=== PATIENT | male | born 1980 | race Caucasian/White ===

== ENCOUNTER 2022-07-14 10:25 | Emergency (ER) | payer MEDICAID, OTHER ==
[2022-07-14] MEDS ORDERED: cefTRIAXone 1 GM VIAL IVP STA (13:26)
[2022-07-14] MEDS ORDERED: SULFAMETH/TRIMETH DS 800/160 MG TABLET PO STA (13:26)
[2022-07-14 13:44] LABS: BASOPHILS % (AUTO) 0.4 %; EOSINOPHILS # (AUTO) 0.1 10^3/uL (0.0-0.7); EOSINOPHILS % (AUTO) 1.3 %; HCT - HEMATOCRIT 45.1 % (42.0-52.0); HGB - HEMOGLOBIN 14.9 g/dL (14.0-18.0); LYMPHOCYTES # (AUTO) 1.3 10^3/uL (1.5-3.5); LYMPHOCYTES % (AUTO) 12.6 %; MEAN CORPUSCULAR HEMOGLOBIN 32.7 pg (27.0-31.0); MEAN CORPUSCULAR VOLUME 98.9 fL (80.0-94.0); MEAN PLATELET VOLUME 8.9 fL (7.4-11.4); MONOCYTES % (AUTO) 8.9 %; NEUTROPHILS # (AUTO) 8.2 10^3/uL (1.5-6.6); NEUTROPHILS % (AUTO) 76.5 %; PLT - PLATELET COUNT 260 10^3/uL (130-450); RED BLOOD COUNT 4.56 10^6/uL (4.70-6.10); RED CELL DISTRIBUTION WIDTH 13.1 % (12.0-15.0); WHITE BLOOD COUNT 10.7 x10^3/uL (4.8-10.8)
[2022-07-14] MEDS ORDERED: TETANUS/DIPHTHERIA/PERTUSSIS 0.5 ML SYRINGE IM ONE (13:49)
--- NOTE | 2022-07-14 13:50 | ED Physician Documentation ---
History of Present Illness - Stated complaint Stated Complaint: BUG BITE - Chief complaint Chief Complaint: Wound - History obtained from History obtained from: Patient - History of Present Illness Timing: How many weeks ago (1) Pain level max: 4 Pain level now: 3 - Additonal information Additional information: Patient is a 41-year-old male who presents to the emergency department complaining of wounds to the left hand and right elbow. The left hand wound was several days ago, turned into a pustule, which resolved on its own. There is still some mild erythema there. He noticed a new pustule on the volar aspect of the right elbow near the antecubital fossa. He states that he noticed redness streaking up his arm today. He states he feels weak, dehydrated and chilled. No fevers. Nothing makes it better or worse. Review of Systems Constitutional: denies: Fever, Chills Respiratory: denies: Cough GI: denies: Nausea, Vomiting, Diarrhea Skin: denies: Rash Musculoskeletal: denies: Neck pain, Back pain Neurologic: denies: Headache PD PAST MEDICAL HISTORY - Past Medical History Past Medical History: No - Past Surgical History Past Surgical History: No - Present Medications Home Medications: Ambulatory Orders Medication Instructions Recorded Confirmed clindamycin HCL [Cleocin HCl] 300 mg PO Q6H #40 cap 07/14/22 - Allergies Allergies/Adverse Reactions: Allergies Allergy/AdvReac Type Severity Reaction Status Date / Time amoxicillin Allergy Unknown Verified 07/14/22 10:44 Penicillins Allergy Unknown Verified 07/14/22 10:44 cillins Allergy Unknown Uncoded 07/14/22 10:44 - Living Situation Living Arrangement: reports: At home - Social History Does the pt drink ETOH?: Yes Does the pt have substance abuse?: No - Family History Family history: reports: Non contributory - Immunizations Immunizations: TDAP >10years/unknown PD ED PE NORMAL - Vitals Vital signs reviewed: Yes - General General: Alert and oriented X 3, No acute distress, Well developed/nourished - HEENT HEENT: Moist mucous membranes - Neck Neck: Supple, no meningeal sign - Cardiac Cardiac: RRR, No murmur, Strong equal pulses - Respiratory Respiratory: No respiratory distress, Clear bilaterally - Abdomen Abdomen: Soft, Non tender, Non distended - Derm Derm: Other (0.5 cm pustule to the right antecubital fossa. Approximately 1 cm surrounding erythema. There is mild streaking up the right arm, about 3 cm. There is also a 0.3 cm healing pustule to the left thenar eminence. NVI) - Extremities Extremities: Other - Neuro Neuro: Alert and oriented X 3 - Psych Psych: Normal mood, Normal affect Results - Vitals Vitals: Vital Signs - 24 hr 07/14/22 07/14/22 07/14/22 10:39 13:26 15:00 Temperature 36.7 C Heart Rate 79 67 61 Respiratory 16 21 22 Rate Blood Pressure 112/77 118/62 117/61 O2 Saturation 99 98 97 Oxygen O2 Source Room air - Labs Labs: Laboratory Tests 07/14/22 07/14/22 13:39 13:39 WBC 10.7 RBC 4.56 L Hgb 14.9 Hct 45.1 MCV 98.9 H MCH 32.7 H MCHC 33.0 RDW 13.1 Plt Count 260 MPV 8.9 Neut # (Auto) 8.2 H Lymph # (Auto) 1.3 L [place] # (Auto) 1.0 Eos # (Auto) 0.1 Baso # (Auto) 0.0 Absolute Nucleated RBC 0.00 Nucleated RBC % 0.0 Sodium 139 Potassium 3.8 Chloride 105 Carbon Dioxide 26 Anion Gap 8.0 BUN 13 Creatinine 1.0 Estimated GFR (MDRD) 83 L Glucose 120 H Calcium 9.0 PD Medical Decision Making - ED course Complexity details: reviewed results, re-evaluated patient, considered differential, d/w patient ED course: Patient with cellulitis of the right upper extremity and a small pustule. There is also a small pustule on the left hand. He was given IV antibiotics and IV fluids. The redness has begun to decrease already in the right upper extremity. No evidence of sepsis. We will place on oral antibiotics for home and have him follow-up closely with his PCP. He will return here if he worsens. No IV drug use. Patient is very well-appearing, nontoxic. Patient counseled regarding signs and symptoms for which I believe and urgent re-evaluation would be necessary. Patient with good understanding of and agreement to plan and is comfortable going home at this time This document was made in part using voice recognition software. While efforts are made to proofread this document, sound alike and grammatical errors may occur. Departure - Departure Disposition: Home, Self Care Clinical Impression: Cellulitis Qualifiers: Site of cellulitis: extremity Site of cellulitis of extremity: upper extremity Laterality: right Qualified Code(s): L03.113 - Cellulitis of right upper limb Condition: Good Instructions: ED Infec Skin Cellulitis Follow-Up: [facility] [Provider Group] [facility] [Provider Group] Prescriptions: clindamycin HCL [Cleocin HCl] 300 mg PO Q6H #40 cap Comments: Take all antibiotics until gone. Please follow-up with your doctor for further care. If you are not improving in the next 24 to 48 hours, please return here for further evaluation. Your prescriptions were sent to [facility]. Discharge Date/Time: 07/14/22 15:24
[2022-07-14 13:55] LABS: POTASSIUM 3.8 mmol/L (3.5-5.0)
[2022-07-14 15:18] VITALS: BP 117/61
== END 2022-07-14 15:24 | disposition home or self-care (01) ==
LOC: ED 10:25
DX: L03.113 Cellulitis of right upper limb (principal)
CPT/HCPCS: 36415; 80048; 85025; 90471; 90715; 96372; 99283; 99284; A9270